=== PATIENT | female | born 1985 | race African-American/Black ===

== ENCOUNTER 2017-02-16 08:42 | Emergency (ER) | payer OTHER, SELFPAY ==
[2017-02-16] MEDS ORDERED: Lidocaine 1% 20 ML MDV ONE (08:52)
[2017-02-16] MEDS ORDERED: Acetaminophen/Codeine 30-300mg Tablet ONE (09:17)
[2017-02-16] MEDS ORDERED: Clindamycin 150 MG CAP ONE (09:17)
== END 2017-02-16 09:22 | disposition home or self-care (01) ==
LOC: NAV ERS 08:42
DX: L02.411 Cutaneous abscess of right axilla (principal)
CPT/HCPCS: 10060; 87070; 87205; J2001

== ENCOUNTER 2017-12-26 12:48 | Emergency (ER) | payer BC, SELFPAY ==
[2017-12-26] MEDS ORDERED: Ketorolac Tromethamine 30 MG/ML VIAL ONE (13:11)
[2017-12-26] MEDS ORDERED: Sodium Chloride 0.9% 1,000 ML ONE (13:11)
[2017-12-26] MEDS ORDERED: Lidocaine Viscous Sol 2% 15 ml UD Cup ONE (13:27)
== END 2017-12-26 14:22 | disposition home or self-care (01) ==
LOC: NAV ERS 12:48
DX: J02.0 Streptococcal pharyngitis (principal)
CPT/HCPCS: 87430; 96361; 96374; J1885; J7050

== ENCOUNTER 2022-06-13 17:31 | Emergency (ER) | payer OTHER, SELFPAY ==
[2022-06-13] MEDS ORDERED: Ibuprofen 800 MG TAB ONE (18:03)
== END 2022-06-13 18:55 | disposition home or self-care (01) ==
LOC: NAV ERS 17:31
DX: S60.211A Contusion of right wrist, initial encounter (principal); S50.01XA Contusion of right elbow, initial encounter; Y04.2XXA Assault by strike against or bumped into by another person, initial encounter